=== PATIENT | male | born 1935 | race Caucasian/White ===

== ENCOUNTER → 2017-12-01 13:56 | Outpatient (CLI) | payer MEDICARE, SELFPAY ==
--- NOTE | 2017-12-01 13:59 | MR_ITS ---
MR shoulder LT wo con HISTORY:Left shoulder pain with limited range of motion and weakness ITS.REASON: PAIN IN LEFT SHOULDER ORDERING PHYSICIAN: Ab Rice MD PATIENT AGE: 82 years Comparison: None TECHNIQUE: Standard multiplanar multiecho sequences are performed without contrast. FINDINGS: There is complete tear of the supraspinatus tendon with retraction of the musculotendinous fibers by at least 2 cm. There is thickening of the infraspinatus tendon with increased T2 signal consistent with tendinopathy/tendinosis. There is also thickening of the subscapularis tendon with increased T2 signal. The teres minor tendon appears intact. 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 A 14 mm cyst is present in the greater tuberosity of the humerus with some nonspecific increased T2 signal in the humeral head. The bicipital tendon is in place. No obvious labral tear. There is a mild amount of fluid in the bicipital tendon sheath. There is fluid present in the subdeltoid region along the humeral head and fluid is noted in the shoulder joint greater in the posterior aspect. There is subacromial stenosis of 5 mm. No fracture IMPRESSION: 1. 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 2. 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 3. 14 mm well-circumscribed cystic lesion in the humeral head at the greater tuberosity 4. Fluid in the bicipital tendon sheath consistent with tendinitis along with shoulder joint effusion
== END ==
PROVIDERS: Family Provider Family Medicine; PCP Family Medicine; Visit Provider Family Medicine
DX: M25.512 Pain in left shoulder (principal)
CPT/HCPCS: 73221